=== PATIENT | female | born 1955 | race Two or more races ===

== ENCOUNTER 2020-06-17 06:03 | Emergency (ER) | payer OTHER ==
[~2020-06-17] VITALS: Ht 165.1 cm; Wt 90.7 kg
[2020-06-17 07:01] VITALS: BP 153/68
== END 2020-06-17 07:44 | disposition home or self-care (01) ==
LOC: ED 06:03
DX: S30.0XXA Contusion of lower back and pelvis, initial encounter (principal); W17.89XA Other fall from one level to another, initial encounter; Y93.89 Activity, other specified; Y92.89 Other specified places as the place of occurrence of the external cause; Y99.8 Other external cause status